=== PATIENT | female | born 2000 | race Caucasian/White ===

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

== ENCOUNTER 2019-04-09 17:45 | Outpatient (CLI) | payer OTHER ==
[2019-04-09] MEDS: LACTATED RINGERS 1,000 ML IV ONE ×2 (18:30→19:12)
[2019-04-09 19:05] LABS: Basophils # (A) 0.1 k/uL (0-0.2); Basophils % (A) 0 %; Eosinophils # (A) 0.2 k/uL (0-0.7); Eosinophils % (A) 2 %; HCT 29.6 % (34.0-46.0); HGB 9.4 gm/dL (11.4-16.0); Lymphocytes # (A) 2.9 k/uL (1.0-4.8); Lymphocytes % (A) 22 %; MCH 20.7 pg (25.0-35.0); MCHC 31.9 g/dL (31.0-37.0); Mean Platelet Volume 6.9; Microcytosis Marked; Monocytes # (A) 0.6 k/uL (0-1.0); Monocytes % (A) 5 %; Neutrophils # (A) 9.1 k/uL (1.3-7.7); Neutrophils % (A) 70 %; Platelet Count 207 k/uL (150-450); RBC 4.55 m/uL (3.80-5.40); RDW 15.7 % (11.5-15.5)
[2019-04-09] MEDS ORDERED: ONDANSETRON 4 MG/2 ML VIAL IVP STA (19:06)
[2019-04-09 19:19] LABS: ALT 14 U/L (9-52); AST 15 U/L (14-36); Albumin 3.8 g/dL (3.5-5.0); Alkaline Phosphatase 75 U/L (38-126); Anion Gap 4 mmol/L; Blood Urea Nitrogen 7 mg/dL (7-17); Carbon Dioxide 22 mmol/L (22-30); Chloride 109 mmol/L (98-107); Glucose 68 mg/dL (74-99); Sodium 135 mmol/L (137-145); Total Bilirubin 0.4 mg/dL (0.2-1.3); Total Protein 6.6 g/dL (6.3-8.2)
[2019-04-09 20:04] LABS: Amorphous Sediment,Urine Rare /hpf; Appearance,Urine Cloudy (Clear); Bacteria,Urine Rare /hpf; Bilirubin,Urine Negative (Negative); Blood,Urine Negative (Negative); Color,Urine Light Yellow; Glucose,Urine (UA) Negative (Negative); Ketones,Urine Negative (Negative); Leukocyte Esterase,Urine Moderate (Negative); Mucus,Urine Rare /hpf; Nitrite,Urine Negative (Negative); Protein,Urine Negative (Negative); RBC,Urine 2 /hpf (0-5); Specific Gravity,Urine 1.006 (1.001-1.035); Squamous Epithelial Cell,Urine 16 /hpf (0-4); Urobilinogen,Urine <2.0 mg/dL (<2.0); WBC,Urine 16 /hpf (0-5)
[2019-04-09 20:41] VITALS: BP 110/54; PULSE 84; RESP 18; TEMP 97.6
--- NOTE | 2019-04-10 11:33 | P.MSEPDOC ---
Presenting Problems - Arrival Data Date of Arrival on Unit: 04/09/19 Time of Arrival on Unit: 17:35 Mode of Transport: Ambulatory - Complaint OB-Reason for Admission/Chief Complaint: Acute Nausea/Vomiting Medical History - Information : 3 Para: 2 Number of Living Children: 2 - Gestational Age Gestational Age by BRIELLE (wks/days): 28 Weeks and 2 Days Review of Systems - Review of Systems Constitutional: No problems Breast: No problems ENT: No problems Cardiovascular: No problems Respiratory: No problems Gastrointestinal: Diarrhea Genitourinary: No problems Musculoskeletal: No problems Neurological: No problems Skin: No problems Vital Signs - Temperature Temperature: 97.6 F - Pulse Right Sitting Brachial Pulse Rate: 84 Pulse Assessment Method: Automatic Cuff - Respirations Respiratory Rate: 18 - Blood Pressure Right Arm Sitting Blood Pressure: 110/54 Blood Pressure Mean: 72 Blood Pressure Source: Automatic Cuff Medical Screen Scoring (Pre) - Cervical Exam Dilation: Exam Deferred Effacement: Exam Deferred Membranes: Intact - Uterine Contractions Frequency: N/A Duration: N/A Intensity: N/A - Maternal Vital Signs Maternal Temperature: N/A Maternal Blood Pressure: N/A Signs of Preeclampsia: N/A Maternal Respirations: N/A - Maternal Trauma Maternal Trauma: N/A - Assessment Baseline FHR: 140 Heart Rate - NICHD Category: Category I (Normal) = 0 NST: Reactive Position: N/A Station: N/A - Total Score Total Score (Pre): 0 - Level of Risk Level of Risk: N/A Medical Screen Scoring (Post) - Uterine Contractions Frequency: N/A Duration: N/A Intensity: N/A - Maternal Vital Signs Maternal Temperature: N/A Signs of Preeclampsia: N/A Maternal Respirations: N/A - Pain Assessment Pain Scale Used: Numeric (1 - 10) Pain Intensity: 0 - Maternal Trauma Maternal Trauma: N/A - Assessment Heart Rate: 135 Heart Rate - NICHD Category: Category I (Normal) = 0 NST: Reactive Position: N/A Station: N/A - Total Score Total Score (Post): 0 - Post Treatment Level of Risk Post Treatment Level of Risk: Low (0-5) Physician Notification (Post) - Physician Notified Physician Notified Date: 04/09/19 Physician Notified Time: 20:12 Physician/Practitioner Notified:: Dr. Carbajal Spoke With: Dr. Carbajal New Order Received: Yes - Notification Comment Comment: labs reported, pt was given IFV and oral hydration, orders to increase water intake and not coffee, follow up with Dr. Carlin at next scheduled appt Disposition - Disposition OB Disposition: Triage, Discharge to home, Written follow up instructions reviewed Discharge Date: 04/09/19 Discharge Time: 20:25 I agree with the RN Medical Screening Exam: Yes Risk & Benefit of care provided described in d/c instruction: Yes Diagnosis: VOMITING OF , UNSPECIFIED
== END 2019-04-09 20:25 | disposition home or self-care (01) ==
LOC: FBPOP 17:45
PROVIDERS: ATTEND Obstetrics & Gynecology
DX: O21.2 Late vomiting of pregnancy (principal); Z3A.28 28 weeks gestation of pregnancy
CPT/HCPCS: 59025; 96360; 96361; 80053; 85025; 81001; G0463; 99214

== ENCOUNTER 2019-06-26 17:44 | Inpatient (IN) | payer OTHER ==
[2019-06-26] MEDS: LACTATED RINGERS 1,000 ML IV SCH ×2 (18:40→19:14)
[2019-06-26] MEDS ORDERED: METHYLERGONOVINE 0.2 MG/ML 1 ML AMP IM PRN (18:44)
[2019-06-26] MEDS ORDERED: LIDOCAINE 0.5% (PF) 5 MG/ML (50 ML SDV) SQ PRN (18:44)
[2019-06-26] MEDS ORDERED: OXYTOCIN 10 UNIT/ML 1 ML VIAL IM PRN (18:44)
[2019-06-26] MEDS ORDERED: CARBOPROST TROMETHAMINE 250 MCG/ML 1 ML AMP IM PRN (18:44)
[2019-06-26] MEDS ORDERED: TERBUTALINE 1 MG/ML VIAL SQ PRN (18:44)
[2019-06-26] MEDS ORDERED: OXYTOCIN 30 UNITS/500 ML NS 30 UNIT in SALINE 1 500ML.BAG IV SCH (18:45)
[2019-06-26 18:55] LABS: Basophils # (A) 0.1 k/uL (0-0.2); Basophils % (A) 0 %; Eosinophils # (A) 0.1 k/uL (0-0.7); Eosinophils % (A) 1 %; HCT 31.7 % (34.0-46.0); HGB 9.9 gm/dL (11.4-16.0); Hypochromasia Slight; Lymphocytes # (A) 3.3 k/uL (1.0-4.8); Lymphocytes % (A) 15 %; MCH 20.5 pg (25.0-35.0); MCHC 31.2 g/dL (31.0-37.0); MCV 65.8 fL (80.0-100.0); Mean Platelet Volume 6.7; Microcytosis Marked; Monocytes % (A) 5 %; Neutrophils % (A) 78 %; Platelet Count 313 k/uL (150-450); Poikilocytosis Slight; RBC 4.82 m/uL (3.80-5.40); RDW 15.2 % (11.5-15.5); WBC 21.9 k/uL (4.0-11.0)
[2019-06-26] MEDS ORDERED: SODIUM CHLORIDE 0.9% 100 ML BAG ONE (18:59)
[2019-06-26] MEDS ORDERED: fentaNYL (PF) 50 MCG/ML 5 ML AMP ONE (18:59)
[2019-06-26] MEDS ORDERED: ROPIVACAINE 5MG/ML 20ML VIAL ONE (18:59)
[2019-06-26 19:40] VITALS: BMI 24.5
[2019-06-26] MEDS ORDERED: ROPIVACAINE 100 MG, fentaNYL (PF) 200 MCG in SODIUM CHLORIDE 0.9% 76 ML EPIDURAL ONE (19:56)
--- NOTE | 2019-06-26 21:59 | P.HPOB ---
History of Present Illness H&P Date: 06/26/19 Chief Complaint: Normal labor 19-year-old presents at 39 weeks and 3 days in labor. Her cervix is 6 cm dilated, 90% effaced, and 0 station. She is maykel every 2 minutes. heart tones 130 with moderate variability and reactive. Review of Systems All systems: negative Constitutional: Denies chills, Denies fever Eyes: denies blurred vision, denies pain Ears, nose, mouth and throat: Denies headache, Denies sore throat Cardiovascular: Denies chest pain, Denies shortness of breath Respiratory: Denies cough Gastrointestinal: Denies abdominal pain, Denies diarrhea, Denies nausea, Denies vomiting Genitourinary: Denies dysuria, Denies hematuria Musculoskeletal: Denies myalgias Integumentary: Denies pruritus, Denies rash Neurological: Denies numbness, Denies weakness Psychiatric: Denies anxiety, Denies depression Endocrine: Denies fatigue, Denies weight change Past Medical History Past Medical History: Chest Pain / Angina, GERD/Reflux Additional Past Medical History / Comment(s): Obstetric history: She's had 2 previous vaginal deliveries the second one was 8 lbs. 15 oz. and she did have a shoulder dystocia with this. This is her third and she's had care with Dr. Reveles. Blood type is O-, antibodies negative, rubella immune, hepatitis B-, GBS negative, HIV negative, RPR nonreactive. She had extensive conversations with Dr. Reveles regarding her history of shoulder dystocia. The agreement made between them was of the baby was over 8 and half pounds then she would have a section. Most recently last week they did discuss this and decided to have induction of labor was scheduled for tomorrow. I reviewed the risks with shoulder dystocia including long-term injury and . Patient continued to desire vaginal . History of Any Multi-Drug Resistant Organisms: None Reported Past Surgical History: Hernia Repair Additional Past Surgical History / Comment(s): dental surgery Past Anesthesia/Blood Transfusion Reactions: No Reported Reaction Additional Past Anesthesia/Blood Transfusion Reaction / Comment(s): no hx blood transfusion Past Psychological History: Anxiety, Depression Additional Psychological History / Comment(s): NO MEDICATIONS AT THIS TIME Smoking Status: Current every day smoker Past Alcohol Use History: None Reported Additional Past Alcohol Use History / Comment(s): started smoking at age 8,smoke approx 5 cig per day Past Drug Use History: Marijuana Additional Drug Use History / Comment(s): uses marijuana every other mos approx- last used approx 2 mos ago. last used 3 weeks ago. - Past Family History Father Family Medical History: No Reported History Mother Family Medical History: Cancer Additional Family Medical History / Comment(s): cervical CA Medications and Allergies Home Medications Medication Instructions Recorded Confirmed Type RX: 114/Iron A-G/Folate 1 1 tab PO DAILY 12/19/18 06/26/19 History [Prenate Elite Tablet] Allergies Allergy/AdvReac Type Severity Reaction Status Date / Time red meat AdvReac Abdominal Uncoded 04/09/19 18:01 Pain Exam Osteopathic Statement: *. No significant issues noted on an osteopathic structural exam other than those noted in the History and Physical/Consult. Vital Signs Temp Pulse Resp BP Pulse Ox 06/26/19 18:41 98.7 F 99 18 124/71 97 06/26/19 18:30 98.7 F 97 124/71 99 Intake and Output 06/26/19 06/26/19 06/26/19 06:59 14:59 22:59 Other: # Voids 1 Weight 60.781 kg Heart: Regular rate and rhythm Lungs: Clear to auscultation bilaterally Abdomen: Soft, nontender Extremities: Negative Homans sign Results Result Diagrams: 06/26/19 18:35 Abnormal Lab Results - Last 24 Hours (Table) 06/26/19 Range/Units 18:35 WBC 21.9 H (4.0-11.0) k/uL Hgb 9.9 L (11.4-16.0) gm/dL Hct 31.7 L (34.0-46.0) % MCV 65.8 L (80.0-100.0) fL MCH 20.5 L (25.0-35.0) pg Neutrophils # 17.0 H (1.3-7.7) k/uL Assessment and Plan (1) Normal labor Current Visit: Yes Status: Acute Code(s): O80 - ENCOUNTER FOR FULL-TERM UNCOMPLICATED DELIVERY; Z37.9 - OUTCOME OF DELIVERY, UNSPECIFIED SNOMED Code(s): 19977144 Plan: 1. Expectant management 2. Anticipate normal vaginal delivery
--- NOTE | 2019-06-26 22:01 | P.PROBDLV ---
Vaginal Delivery Note - . Vaginal Delivery Note: 19-year-old presents at 39 weeks and 3 days in labor. Her cervix is 6 cm dilated, 90% effaced, and 0 station. She is maykel every 2 minutes. heart tones 130 with moderate variability and reactive. Patient was admitted and in labor and delivery room and given an epidural after IV fluids were also given. Amniotomy was performed at 1926, clear fluid noted. She progressed to complete just after 2129, pushed and delivered a viable male over intact perineum under epidural anesthesia at 2146. Head delivered OA, anterior shoulder which was the left shoulder delivered gentle downward guidance of posterior shoulder and rest of body. Nose and mouth bulb suctioned, cord clamped and cut, placed mother's abdomen. Apgars 9, 9, weight pending. Placenta delivered spontaneously, intact with three-vessel cord at 2148. Vagina, cervix, and perineum inspected. No lacerations noted. Estimated blood loss 150 mL. Mother and baby in stable condition.
[2019-06-26] MEDS ORDERED: BENZOCAINE/MENTHOL SPRAY 1 GM/SPRAY AEROSOL TOPICAL PRN (22:02)
[2019-06-26] MEDS ORDERED: ACETAMINOPHEN TAB 325 MG TAB PO PRN (22:02)
[2019-06-26] MEDS ORDERED: diphenhydrAMINE 50 MG CAP PO PRN (22:02)
[2019-06-26] MEDS ORDERED: ZOLPIDEM 5 MG TAB PO PRN (22:02)
[2019-06-26] MEDS ORDERED: diphenhydrAMINE 50 MG/ML 1 ML VIAL IVP PRN ×2 (22:02)
[2019-06-26] MEDS ORDERED: LANOLIN CREAM 5 GM TUBE TOPICAL PRN (22:02)
[2019-06-26] MEDS ORDERED: SIMETHICONE 80 MG CHEWABLE PO PRN (22:02)
[2019-06-26] MEDS ORDERED: diphenhydrAMINE 25 MG CAP PO PRN (22:02)
[2019-06-26] MEDS ORDERED: HYDROCORTISONE 2.5% RECTAL CREAM 30 GM TUBE RECTAL PRN (22:02)
[2019-06-26] MEDS ORDERED: Rhogam IMMUNE GLOBULIN 1,500 UNIT/1 ML IM ONE (22:02)
[2019-06-26] MEDS ORDERED: WITCH HAZEL 1 EACH MED..PAD TOPICAL PRN (22:02)
--- NOTE | 2019-06-26 22:05 | P.MSEPDOC ---
Presenting Problems - Arrival Data Date of Arrival on Unit: 06/26/19 Time of Arrival on Unit: 17:45 Mode of Transport: Ambulatory - Complaint OB-Reason for Admission/Chief Complaint: Possible Onset of Labor Medical History - Information : 3 Para: 2 Term: 2 : 0 Abortions: Spontaneous or Elective: 0 Number of Living Children: 2 - Gestational Age Gestational Age by BRIELLE (wks/days): 39 Weeks and 3 Days Review of Systems - Review of Systems Constitutional: No problems Breast: No problems ENT: No problems Cardiovascular: No problems Respiratory: No problems Gastrointestinal: No problems Genitourinary: No problems Musculoskeletal: No problems Neurological: No problems Skin: No problems Vital Signs - Temperature Temperature: 98.7 F Temperature Source: Oral - Pulse Right Brachial Pulse Rate: 99 Pulse Assessment Method: Auscultation - Respirations Respiratory Rate: 18 Oxygen Delivery Method: Room Air O2 Sat by Pulse Oximetry: 97 - Blood Pressure Right Arm Blood Pressure: 124/71 Blood Pressure Mean: 88 Blood Pressure Source: Automatic Cuff Medical Screen Scoring (Pre) - Cervical Exam Dilation: 4-7 cm = 2 Effacement: More than 50% = 2 Membranes: Intact - Uterine Contractions Frequency: > or = 36 weeks =2 Duration: > 40 seconds = 2 Intensity: Contraction palpated strong = 1 - Maternal Vital Signs Maternal Temperature: N/A Maternal Blood Pressure: N/A Signs of Preeclampsia: N/A Maternal Respirations: N/A - Maternal Trauma Maternal Trauma: N/A - Assessment - Baby A Baseline FHR: 135 Heart Rate - NICHD Category: Category I (Normal) = 0 NST: Reactive Position: N/A - Total Score - Baby A Total Score - Baby A: 9 - Total Score - Baby B Total Score - Baby B: 9 - Total Score - Baby C Total Score - Baby C: 9 - Level of Risk - Baby A Level of Risk - Baby A: Medium (6-9) - Level of Risk - Baby B Level of Risk - Baby B: Medium (6-9) - Level of Risk - Baby C Level of Risk - Baby C: Medium (6-9) Physician Notification (Pre) - Physician Notified Physician Notified Date: 06/26/19 Physician Notified Time: 18:30 Physician/Practitioner Notifed:: dima Spoke With: dima New Order Received: Yes - Notification Comment Comment: admit Disposition - Disposition OB Disposition: Admit Discharge Date: 06/26/19 Discharge Time: 18:30 I agree with the RN Medical Screening Exam: Yes Risk & Benefit of care provided described in d/c instruction: Yes Diagnosis: ENCOUNTER FOR FULL-TERM UNCOMPLICATED DELIVERY
[2019-06-26] MEDS: IBUPROFEN 600 MG TAB PO PRN (22:10)
[2019-06-26] MEDS ORDERED: OXYTOCIN 20 UNITS/1000 ML NS 1,000 ML IV SCH (22:15)
[2019-06-27 01:00] LABS: Amphetamine Screen,Urine Not Detected (NotDetected); Barbiturate Screen,Urine Not Detected (NotDetected); Benzodiazepines Screen,Urine Not Detected (NotDetected); Cocaine Screen,Urine Not Detected (NotDetected); Methadone Screen, Urine Not Detected (NotDetected); Opiate Screen,Urine Not Detected (NotDetected); Oxycodone Screen, Urine Not Detected (NotDetected); Phencyclidine Screen,Urine Not Detected (NotDetected); Tricyclic Antidepressant,Urine Not Detected (NotDetected); Urn Cannabinoid Scrn Detected (NotDetected)
[2019-06-27] MEDS: IBUPROFEN 600 MG TAB PO PRN ×2 (07:50→14:42)
--- NOTE | 2019-06-27 07:55 | P.DS ---
Providers Date of admission: 06/26/19 18:16 Expected date of discharge: 06/27/19 Attending physician: Kalen Carlin Primary care physician: Kalen Carlin [facility] Course: Zachariah doing very well day 1. She is involuting, voiding tolerating her diet. She voices no points. Vital signs are stable and afebrile. Heart regular, lungs clear, extremities without pain. Abdomen soft uterus is firm and lochia is reported light. Assessment day 1. Plan discharged home. Follow-up in 6 weeks. Discharge instructions thoroughly reviewed and prescription for Motrin for into pharmacy. All the questions are answered for h er prior to her discharge. Patient Condition at Discharge: Good Plan - Discharge Summary Discharge Rx Participant: No New Discharge Prescriptions: New Ibuprofen [Motrin] 600 mg PO Q6HR PRN #30 tab PRN Reason: Pain No Action 114/Iron A-G/Folate 1 [Prenate Elite Tablet] 1 tab PO DAILY Discharge Medication List 114/Iron A-G/Folate 1 [Prenate Elite Tablet] 1 tab PO DAILY 12/19/18 [History] Ibuprofen [Motrin] 600 mg PO Q6HR PRN #30 tab 06/27/19 [Rx] Follow up Appointment(s)/Referral(s): Kalen Carlin DO [Primary Care Provider] - 6 Weeks Activity/Diet/Wound Care/Special Instructions: No heavy lifting, limit stairs and driving, and pelvic rest. If any high temperatures, heavy bleeding, or severe pain call the office Discharge Disposition: HOME SELF-CARE
[2019-06-27] MEDS ORDERED: SENNOSIDES-DOCUSATE SODIUM 1 EACH TAB PO SCH (08:00)
[2019-06-27 21:07] VITALS: BP 130/75; PULSE 73; RESP 16; TEMP 98.5
== END 2019-06-27 22:30 | disposition home or self-care (01) | DRG 807 ==
LOC: FBPOP 17:44 → 4FBP 18:16
PROVIDERS: ADMIT Obstetrics & Gynecology; ATTEND Obstetrics & Gynecology
PROC: 10E0XZZ Delivery of Products of Conception, External Approach (ICD-10-PCS; principal; 2019-06-26)
PROC: 00HU33Z Insertion of Infusion Device into Spinal Canal, Percutaneous Approach (ICD-10-PCS; 2019-06-26)
PROC: 3E0R3BZ Introduction of Anesthetic Agent into Spinal Canal, Percutaneous Approach (ICD-10-PCS; 2019-06-26)
PROC: 3E0234Z Introduction of Serum, Toxoid and Vaccine into Muscle, Percutaneous Approach (ICD-10-PCS; 2019-06-26)
DX: O26.893 Other specified pregnancy related conditions, third trimester (principal); Z37.0 Single live birth; Z67.41 Type O blood, Rh negative; O99.324 Drug use complicating childbirth; F12.90 Cannabis use, unspecified, uncomplicated; O99.62 Diseases of the digestive system complicating childbirth; K21.9 Gastro-esophageal reflux disease without esophagitis; O99.334 Smoking (tobacco) complicating childbirth; F17.210 Nicotine dependence, cigarettes, uncomplicated; Z3A.39 39 weeks gestation of pregnancy; Z79.899 Other long term (current) drug therapy; Z86.59 Personal history of other mental and behavioral disorders; Z80.49 Family history of malignant neoplasm of other genital organs
CPT/HCPCS: 80306; 85025; 85461; 86850; 86870; 86880; 86900; 86901; 90471

== ENCOUNTER → 2020-10-09 | Outpatient (CLI) | payer OTHER ==
--- NOTE | 2020-10-09 14:23 | US ---
EXAMINATION TYPE: US pelvic complete DATE OF EXAM: 10/09/2020 COMPARISON: NONE CLINICAL HISTORY: Z30.431 IUD Placement. IUD placement 08/17/20 TECHNIQUE: Transabdominal (TA). Date of LMP: 10/01/20 EXAM MEASUREMENTS: Uterus: 6.6 x 3.9 x 4.4 cm Endometrial Stripe: 0.4 cm Right Ovary: 5.3 x 2.2 x 1.7 cm Left Ovary: 5.8 x 2.3 x 3.0 cm 1. Uterus: Anteverted 2. Endometrium: IUD visualized within body/fundus of uterus 3. Right Ovary: enlarged with multiple follicles noted 4. Left Ovary: enlarged with multiple follicles noted, largest cystic area = 3.7 x 1.9 x 3.2cm 5. Bilateral Adnexa: wnl 6. Posterior cul-de-sac: wnl IMPRESSION: 1. There is a 3.7 cm left ovarian cyst. 2. IUD is seen within the body and fundus of the uterus.
== END | disposition home or self-care (01) ==
LOC: RADUSWWP 13:46
PROVIDERS: ATTEND Obstetrics & Gynecology
DX: N83.202 Unspecified ovarian cyst, left side (principal); Z97.5 Presence of (intrauterine) contraceptive device
CPT/HCPCS: 76856

== ENCOUNTER → 2020-12-19 | Outpatient (CLI) | payer OTHER ==
--- NOTE | 2020-12-19 14:57 | US ---
EXAMINATION TYPE: US pelvic complete DATE OF EXAM: 12/19/2020 COMPARISON: 10/09/2020 CLINICAL HISTORY: 20-year-old female N83.0 Ovarian Cyst. Follow up ovarian cyst. No pain. IUD. TECHNIQUE: Transabdominal (TA). Transabdominal sonographic images of the pelvis were acquired. Date of LMP: Unknown, FINDINGS: EXAM MEASUREMENTS: Uterus: 6.8 x 4.5 x 3.4 cm Endometrial Stripe: 0.5 cm Right Ovary: 4.6 x 1.6 x 1.9 cm for a volume of 7.1 mL Left Ovary: 3.3 x 2.0 x 1.5 cm for a volume of 5.1 mL 1. Uterus: Anteverted and otherwise wnl 2. Endometrium: IUD visualized appropriately centered within the uterine canal 3. Right Ovary: Multiple follicles seen 4. Left Ovary: follicles seen. There is a 1.3 cm hypoechoic round structure in the left ovary. 5. Bilateral Adnexa: wnl 6. Posterior cul-de-sac: no free fluid IMPRESSION: 1. IUD appropriately situated along the uterine cavity. 2. Prominent follicular change in both ovaries with small bilateral follicles. A corpus luteum or hem orrhagic cyst in the left ovary measures 1.3 cm. The previously 3.7 cm cystic structure has resolved.
== END | disposition home or self-care (01) ==
LOC: RADUSWWP 13:01
PROVIDERS: ATTEND Obstetrics & Gynecology
DX: N83.02 Follicular cyst of left ovary (principal); Z97.5 Presence of (intrauterine) contraceptive device
CPT/HCPCS: 76856